=== PATIENT | male | born 1960 | race Caucasian/White ===

== ENCOUNTER → 2019-08-06 | Outpatient (CLI) | payer BC ==
--- NOTE | 2019-08-06 09:03 | RAD ---
EXAM: Chest, 2 views. HISTORY: Shortness of air. COMPARISON: None. FINDINGS: 2 views of the chest are obtained. There is diffuse increased interstitial opacity. There is no consolidation, pleural effusion or pneumothorax. The heart is normal in size. There are surgical clips within the left upper quadrant. IMPRESSION: Diffuse increased interstitial opacity due to infiltrate or chronic interstitial changes. Electronically signed by: Leslie Mancia MD (08/06/2019 9:00 AM) [id number]
== END ==
LOC: RAD 08:14
PROVIDERS: ATTEND Family Medicine
DX: R06.02 Shortness of breath (principal)
CPT/HCPCS: 71046

== ENCOUNTER → 2019-08-20 | Outpatient (CLI) | payer BC ==
--- NOTE | 2019-08-20 08:20 | RAD ---
EXAM: CHEST PA LATERAL 08/20/2019 12:00 AM CLINICAL INDICATION:Shortness of breath COMPARISON:Chest radiograph 08/06/2019 TECHNIQUE:PA and lateral views of the chest FINDINGS:The cardiomediastinal silhouette is unchanged. Central pulmonary arteries are prominent. There is diffuse interstitial thickening, unchanged. No consolidation, pleural effusion, or pneumothorax. Surgical clips are in the left upper quadrant. There is multilevel degenerative disc disease bridging osteophytes. IMPRESSION:Unchanged diffuse interstitial thickening, which could be related to small airways disease or pulmonary vascular congestion. Electronically signed by: Mirna Masters MD (08/20/2019 8:17 AM) [id number]
== END | disposition home or self-care (01) ==
LOC: RAD 07:39
PROVIDERS: ATTEND Family Medicine
DX: R06.02 Shortness of breath (principal); M25.78 Osteophyte, vertebrae; M47.814 Spondylosis without myelopathy or radiculopathy, thoracic region
CPT/HCPCS: 71046